=== PATIENT | female | born 1990 | race Caucasian/White ===

== ENCOUNTER 2017-03-01 06:10 | Inpatient (IN) | payer OTHER ==
[~2017-03-01] VITALS: Ht 172.7 cm; Wt 71.0 kg
[~2017-03-01 06:10] MED LIST: AMOX1TAB64 PO; HYDR473S51 PO; PRED10TA PO; PRED20TA PO
[2017-03-01] MEDS ORDERED: OXYTOCIN 30U/ 0.9% NaCL 500ML 500 ML IV ONE (07:18)
[2017-03-01] MEDS ORDERED: OXYTOCIN 30U/ 0.9% NaCL 500ML 500 ML IV PRN (07:18)
[2017-03-01] MEDS ORDERED: FENTANYL PF 100 MCG/2ML IVPush PRN (07:30)
[2017-03-01] MEDS ORDERED: OXYTOCIN 30U/ 0.9% NaCL 500ML 500 ML ONE ×2 (07:40→22:54)
[2017-03-01 07:46] VITALS: BP 117/69
[2017-03-01 08:19] LABS: ANISOCYTOSIS 1+; OVALOCYTES 1+; POLYCHROMASIA 1+
[2017-03-01 08:20] LABS: GIANT PLATELETS 1+; LARGE PLATELETS 1+
[2017-03-01] MEDS ORDERED: NEWBORN KIT ONE (09:06)
[2017-03-01] MEDS: LACTATED RINGERS 1,000 ML IV SCH ×4 (11:44→23:18)
[2017-03-01] MEDS ORDERED: BUPIVACAINE 0.25% ONE ×2 (14:16→14:17)
[2017-03-01] MEDS ORDERED: FENTANYL PF 100 MCG/2ML ONE (14:16)
[2017-03-01] MEDS ORDERED: FENTANYL/BUPIV./NS/PF 250 ML EPIDCONT ONE (14:16)
[2017-03-01] MEDS ORDERED: LIDOCAINE/PF 1.5%-EPI 1:200K, 30ML ONE (14:17)
[2017-03-01] MEDS: D5%-LACTATED RINGERS 1,000 ML IV SCH ×3 (15:18→23:18)
[2017-03-01] MEDS ORDERED: FENTANYL/BUPIV./NS/PF 250 ML EPIDCONT SCH (16:06)
[2017-03-01] MEDS ORDERED: LACTATED RINGERS 1,000 ML IVBOLUS PRN (16:30)
[2017-03-01] MEDS ORDERED: LIDOCAINE 1%, 20ML ONE (18:46)
[2017-03-01] MEDS ORDERED: MISOPROSTOL 200 MCG TABLET ONE (18:47)
[2017-03-01 19:44] VITALS: BP 132/75
[2017-03-01] MEDS ORDERED: ONDANSETRON 2MG/ML, 2ML ONE (21:13)
[2017-03-01] MEDS ORDERED: ONDANSETRON 2MG/ML, 2ML IVPush ONE (21:30)
[2017-03-02] MEDS: LACTATED RINGERS 1,000 ML IV SCH ×2 (00:06→08:06)
[2017-03-02] MEDS ORDERED: OXYTOCIN 30U/ 0.9% NaCL 500ML 500 ML IV SCH (02:54)
[2017-03-02] MEDS ORDERED: METHYLERGONOVINE 0.2 MG/ML IM PRN (03:00)
[2017-03-02] MEDS ORDERED: OXYTOCIN 10 UNITS/ML, 1ML IM PRN (03:00)
[2017-03-02] MEDS ORDERED: CARBOPROST TROMETHAMINE 250 MCG/ML, 1ML IM PRN (03:00)
[2017-03-02] MEDS ORDERED: ONDANSETRON 2MG/ML, 2ML IV PRN (03:00)
[2017-03-02] MEDS ORDERED: ACETAMINOPHEN 325 MG TABLET PO PRN (03:00)
[2017-03-02] MEDS ORDERED: MISOPROSTOL 200 MCG TABLET PR PRN (03:00)
[2017-03-02] MEDS ORDERED: OXYcodone/APAP 5/325MG TABLET PO PRN (03:00)
[2017-03-02 04:50] VITALS: BP 113/68
[2017-03-02 08:18] VITALS: BP 96/52
[2017-03-02] MEDS: IBUPROFEN 600 MG TABLET PO PRN ×2 (09:38→17:26)
[2017-03-02] MEDS: PRENATAL VIT/IRON/FA 1 EACH TABLET PO SCH (09:38)
[2017-03-02] MEDS: DOCUSATE 100 MG CAPSULE PO PRN ×2 (09:38→17:27)
[2017-03-02] MEDS ORDERED: FENTANYL/BUPIV./NS/PF 250 ML EPIDCONT ONE (14:17)
[2017-03-02] MEDS: OXYcodone/APAP 5/325MG TABLET PO PRN ×2 (17:33→22:19)
[2017-03-02 20:00] VITALS: BP 109/69
[2017-03-03 02:36] VITALS: BP 115/67
[2017-03-03] MEDS: OXYcodone/APAP 5/325MG TABLET PO PRN ×2 (05:17→14:26)
[2017-03-03 07:35] VITALS: BP 136/86
[2017-03-03] MEDS: PRENATAL VIT/IRON/FA 1 EACH TABLET PO SCH (07:57)
[2017-03-03] MEDS: DOCUSATE 100 MG CAPSULE PO PRN (07:57)
[2017-03-03] MEDS: IBUPROFEN 600 MG TABLET PO PRN (07:57)
[2017-03-03] MEDS ORDERED: DIPH,PERTUSS(ACELL),TET VAC/PF NC IM-VACC ONE ×2 (10:24→10:30)
[2017-03-03] MEDS ORDERED: OXYC-302 PO (16:47)
[2017-03-03] MEDS ORDERED: SENN1TAB5 PO (16:47)
[2017-03-03] MEDS ORDERED: IBUP-1222 PO (16:47)
== END 2017-03-03 18:03 | disposition home or self-care (01) | DRG 775 ==
LOC: LDIP 06:10 → 2NW 03-02 04:30
PROVIDERS: ADMIT Obstetrics & Gynecology; ATTEND Obstetrics & Gynecology
PROC: 10E0XZZ Delivery of Products of Conception, External Approach (ICD-10-PCS; principal; 2017-03-02)
PROC: 0KQM0ZZ Repair Perineum Muscle, Open Approach (ICD-10-PCS; 2017-03-02)
PROC: 10907ZC Drainage of Amniotic Fluid, Therapeutic from Products of Conception, Via Natural or Artificial Opening (ICD-10-PCS; 2017-03-02)
PROC: 3E0R3CZ (ICD-10-PCS; 2017-03-02)
PROC: 00HU33Z Insertion of Infusion Device into Spinal Canal, Percutaneous Approach (ICD-10-PCS; 2017-03-02)
PROC: 3E033VJ Introduction of Other Hormone into Peripheral Vein, Percutaneous Approach (ICD-10-PCS; 2017-03-02)
DX: O26.62 Liver and biliary tract disorders in childbirth (principal); K83.1 Obstruction of bile duct; O41.03X0 Oligohydramnios, third trimester, not applicable or unspecified; O36.5930 Maternal care for other known or suspected poor fetal growth, third trimester, not applicable or unspecified; O69.81X0 Labor and delivery complicated by cord around neck, without compression, not applicable or unspecified; O70.1 Second degree perineal laceration during delivery; Z23 Encounter for immunization; Z37.0 Single live birth; Z3A.37 37 weeks gestation of pregnancy
CPT/HCPCS: 36415; 82803; 85025; 86850; 86900; 88305; 90715; J2405; J3490; J2590; J3010; J7120; J7121

== ENCOUNTER → 2020-08-14 | Outpatient (CLI) | payer SELFPAY ==
[~2020-08-14] MED LIST changes: +IBUP-1222 PO; +OMNIPAQUE 350 MG/ML, 100ML BOTTLE ONE; +OXYC-302 PO; +SENN-52 PO
== END | disposition home or self-care (01) ==
LOC: CFH 14:30
PROVIDERS: ATTEND Physician Assistant
DX: R11.0 Nausea (principal); R10.9 Unspecified abdominal pain; R19.7 Diarrhea, unspecified
CPT/HCPCS: 74178; Q9967

== ENCOUNTER 2020-09-02 18:55 | Emergency (ER) | payer SELFPAY ==
[~2020-09-02] VITALS: Ht 172.7 cm; Wt 61.3 kg
[~2020-09-02 18:55] MED LIST changes: -OMNIPAQUE 350 MG/ML, 100ML BOTTLE ONE; -OXYC-302 PO; +OXYC1TAB14 PO
[2020-09-02 20:10] LABS: BASOPHILS % (AUTO) 1 % (0-1); EOSINOPHILS % (AUTO) 1 % (1-7); LYMPHOCYTES % (AUTO) 30 % (22-44); MEAN CORPUSCULAR HEMOGLOBIN 26.7 pg (27.0-34.8); MEAN CORPUSCULAR HGB CONC 32.5 g/dL (32.4-35.8); MEAN PLATELET VOLUME 10.6 fL (7.4-10.4); MONOCYTES % (AUTO) 8 % (2-9); NEUTROPHILS % (AUTO) 61 % (42-75); PLATELET COUNT 188 x10^3/uL (130-400); RED BLOOD COUNT 4.72 x10^6/uL (3.82-5.3); RED CELL DISTRIBUTION WIDTH 16.7 % (9.6-15.2)
[2020-09-02 20:19] LABS: ALANINE AMINOTRANSFERASE 16 U/L (12-78); ALBUMIN 3.6 g/dL (3.4-5.0); ANION GAP 6 mmol/L (5-15); CALCIUM 8.8 mg/dL (8.5-10.1); CHLORIDE 109 mmol/L (98-107); CREATININE 0.76 mg/dL (0.55-1.02)
[2020-09-02 20:21] LABS: ALKALINE PHOSPHATASE 57 U/L (45-117); BILIRUBIN,TOTAL 0.3 mg/dL (0.2-1.0); TOTAL PROTEIN 7.2 g/dL (6.4-8.2)
[2020-09-02 20:41] VITALS: BP 97/66
[2020-09-02 20:52] LABS: MD MORPH REVIEW ONLY
[2020-09-02 20:53] LABS: <PLATELET ESTIMATE> ADEQUATE; GIANT PLATELETS 1+
[2020-09-02 20:54] LABS: HYPOCHROMIA 1+; OVALOCYTES 1+
== END 2020-09-02 21:58 | disposition home or self-care (01) ==
LOC: ED 21:30
DX: K92.1 Melena (principal)
CPT/HCPCS: 36415; 80053; 85025; 99283